=== PATIENT | female | born 1955 | race Caucasian/White ===

== ENCOUNTER 2018-09-21 07:19 | Emergency (ER) | payer BC ==
[2018-09-21] MEDS ORDERED: Aspirin Chewable 81 MG TAB ONE (07:46)
[2018-09-21] MEDS ORDERED: Nitroglycerin 2% Ointment 1 INCH/1 GM Packet ONE (07:46)
[2018-09-21] MEDS ORDERED: Sodium Chloride For Inhalation 0.9% 3 ML NEB ONE (07:59)
[2018-09-21 08:09] LABS: #Basophils 0.1 thou/uL (0.0-0.2); #Lymphocytes 1.3 thou/uL (1.20-3.40); #Monocytes 0.4 thou/uL (0.11-0.59); #Neutrophils 3.3 thou/uL (1.40-6.50); %Basophils 2.1 % (0.0-1.0); %Eosinophils 0.4 % (0.0-10.0); %Lymphocytes 25.3 % (21.0-51.0); %Neutrophils 64.1 % (42.0-75.0); Hemoglobin 13.1 g/dL (12.0-16.0); Mean Corpuscular HGB CONC 31.7 g/dL (32.0-36.0); Mean Corpuscular Hemoglobin 32.7 pg (27.0-31.0); Platelet Count 191 thou/uL (130-400); RBC Distribution Width 12.1 % (11.5-14.5); Red Blood Cell (RBC) Count 4.02 mill/uL (4.20-5.40); White Blood Cell (WBC) Count 5.2 thou/uL (4.8-10.8)
[2018-09-21 08:21] LABS: ALT (SGPT) 20 U/L (8-55); AST (SGOT) 16 U/L (5-34); Albumin 4.3 g/dL (3.4-4.8); Alkaline Phosphatase 58 U/L (40-150); Anion Gap 14 mmol/L (10-20); BUN (Urea Nitrogen) 27 mg/dL (9.8-20.1); Bilirubin, Total 0.3 mg/dL (0.2-1.2); Calc. Creatinine Clearance 0 mL/min (70-130); Carbon Dioxide 26 mmol/L (23-31); Chloride 106 mmol/L (98-107); Estimated GFR-MDRD 52; Globulin 2.4 g/dL (2.4-3.5); Glucose 102 mg/dL (80-115); Lipase 44 U/L (8-78); Potassium 3.8 mmol/L (3.5-5.1); Protein, Total 6.7 g/dL (6.0-8.3); Sodium 142 mmol/L (136-145)
--- NOTE | 2018-09-21 08:41 | RAD ---
FEXAM:Chest 2 views HISTORY: Chest pain shortness of breath. COMPARISON: None. FINDINGS:Heart size is upper limits of normal. There are some atherosclerotic changes of the aorta. T he lungs are clear of infiltrates. There are arthritic changes of the spine. IMPRESSION:No active intrathoracic disease.
[2018-09-21 11:15] LABS: Troponin I Less than 0.010 ng/mL (< 0.028)
== END 2018-09-21 12:10 | disposition short-term general hospital (02) ==
LOC: SCSER 07:19
DX: R07.9 Chest pain, unspecified (principal); J44.9 Chronic obstructive pulmonary disease, unspecified; Z79.899 Other long term (current) drug therapy
CPT/HCPCS: 71046; 80053; 83690; 83880; 84484; 85025; 85379; 93005; 94640; J7620

== ENCOUNTER 2018-11-06 09:50 | Outpatient (CLI) | payer BC | END 2018-11-06 09:51 | disposition home or self-care (01) | LOC: CTENTCT 09:50 | PROVIDERS: ATTEND Otolaryngology Plastic Surgery within the Head & Neck | DX: J01.81 Other acute recurrent sinusitis (principal) | CPT/HCPCS: 70486 ==

== ENCOUNTER 2022-07-21 09:38 | Outpatient (CLI) | payer BC, MEDICARE ==
[2022-07-21 10:47] LABS: Mean Corpuscular HGB CONC 32.6 g/dL (32.0-36.0); Mean Corpuscular Hemoglobin 32.3 pg (27.0-33.0); Mean Corpuscular Volume 98.8 fl (81.6-98.3); Mean Platelet Volume 10.2 fl (7.4-10.4); Platelet Count 249 10x3/uL (150-450); RBC Distribution Width 12.5 % (11.5-14.5); Red Blood Cell (RBC) Count 4.34 10x6/uL (3.90-5.03)
[2022-07-21 10:48] LABS: Anion Gap 14 mmol/L (10-20); BUN (Urea Nitrogen) 29 mg/dL (9.8-20.1); Calc. Creatinine Clearance 0 mL/min (70-130); Calcium 9.9 mg/dL (7.8-10.44); Carbon Dioxide 25 mmol/L (23-31); Chloride 108 mmol/L (98-107); Estimated GFR 54; Glucose 94 mg/dL (80-115); Potassium 4.4 mmol/L (3.5-5.1); Sodium 143 mmol/L (136-145)
== END 2022-07-21 09:39 | disposition home or self-care (01) ==
LOC: LABBT 09:38
PROVIDERS: ATTEND Neurological Surgery
DX: Z01.812 Encounter for preprocedural laboratory examination (principal); M54.12 Radiculopathy, cervical region
CPT/HCPCS: 80048; 85027; 93005; 93010

== ENCOUNTER 2022-07-26 08:18 | Day surgery (SDC) | payer MEDICARE, BC ==
[2022-07-22 08:25] VITALS: BMI 40.6
[2022-07-26] MEDS ORDERED: CEFAZOLIN 2 GM VIAL ONE (10:05)
[2022-07-26] MEDS ORDERED: Sodium Chloride 0.9% 100 ML ONE (10:05)
[2022-07-26] MEDS ORDERED: Lidocaine 1% MPF 2 ML VIAL ONE (10:05)
[2022-07-26] MEDS ORDERED: Fentanyl 250 MCG/5 ML VIAL ONE (12:12)
[2022-07-26] MEDS ORDERED: Rocuronium Bromide 10 MG/ML (10ML VIAL) ONE (12:37)
[2022-07-26] MEDS ORDERED: Dexamethasone 20 MG/5 ML VIAL ONE (12:37)
[2022-07-26] MEDS ORDERED: Glycopyrrolate 0.2 MG/ML 5 ML SYRINGE ONE (12:37)
[2022-07-26] MEDS ORDERED: Lidocaine 1% PF 5 ML VIAL ONE (12:37)
[2022-07-26] MEDS ORDERED: ePHEDrine 50 MG/ML VIAL ONE (12:37)
[2022-07-26] MEDS ORDERED: PROPOFOL 200 MG/20 ML VIAL ONE (12:37)
[2022-07-26] MEDS ORDERED: Ondansetron PF 4 MG/2 ML Vial ONE (12:37)
[2022-07-26] MEDS ORDERED: NEOSTIGMINE 3 MG/3 ML SYR 3 MG/3 ML SYRINGE ONE (12:37)
[2022-07-26] MEDS ORDERED: Fentanyl 100 MCG/2 ML VIAL ONE (13:37)
[2022-07-26] MEDS ORDERED: Cyclobenzaprine 10 MG TAB ONE (13:52)
[2022-07-26] MEDS ORDERED: Morphine 2 MG/ML VIAL ONE (14:38)
[2022-07-26] MEDS ORDERED: HYDROcodone/Acetaminophen 5/325 mg Tablet ONE (15:04)
== END 2022-07-26 16:05 | disposition home or self-care (01) ==
LOC: SDC 08:18
PROVIDERS: ATTEND Neurological Surgery
PROC: 0RG20A0 Fusion of 2 or more Cervical Vertebral Joints with Interbody Fusion Device, Anterior Approach, Anterior Column, Open Approach (ICD-10-PCS; principal; 2022-07-26)
DX: M50.122 Cervical disc disorder at C5-C6 level with radiculopathy (principal); Z79.899 Other long term (current) drug therapy; Z88.8 Allergy status to other drugs, medicaments and biological substances; Z91.040 Latex allergy status
CPT/HCPCS: C1713; J1100; J2272; J2405; J2704; J3010; J3490

== ENCOUNTER 2022-08-23 09:38 | Outpatient (CLI) | payer MEDICARE, BC | END 2022-08-23 09:39 | disposition home or self-care (01) | LOC: TBSIIMAG 09:38 | PROVIDERS: ATTEND Neurological Surgery | DX: M47.22 Other spondylosis with radiculopathy, cervical region (principal); M43.12 Spondylolisthesis, cervical region; M46.02 Spinal enthesopathy, cervical region; Z98.1 Arthrodesis status | CPT/HCPCS: 72040 ==

== ENCOUNTER 2022-10-14 13:49 | Outpatient (CLI) | payer MEDICARE, BC | END 2022-10-14 13:50 | disposition home or self-care (01) | LOC: TBSIIMAG 13:49 | PROVIDERS: ATTEND Neurological Surgery | DX: M50.30 Other cervical disc degeneration, unspecified cervical region (principal); M47.812 Spondylosis without myelopathy or radiculopathy, cervical region; Z98.1 Arthrodesis status | CPT/HCPCS: 72040 ==

== ENCOUNTER 2023-01-28 12:44 | Outpatient (CLI) | payer MEDICARE, BC | END 2023-01-28 12:45 | disposition home or self-care (01) | LOC: SCSRAD 12:44 | PROVIDERS: ATTEND Neurological Surgery | DX: M47.22 Other spondylosis with radiculopathy, cervical region (principal); Z98.1 Arthrodesis status | CPT/HCPCS: 72040 ==